=== PATIENT | male | born 1975 ===

== ENCOUNTER 2023-01-20 03:59 | Day surgery (SDC) | payer BC ==
[2023-01-14 17:50] VITALS: BMI 23.6
[2023-01-20] MEDS ORDERED: MIDAZOLAM HCL 2 MG/2 ML SINGLE DOSE VIAL ONE (17:58)
[2023-01-20 19:04] VITALS: BP 112/66; PULSE 80; RESP 16; TEMP 97.3
== END 2023-01-20 19:40 | disposition home or self-care (01) ==
LOC: JASU-SURG 03:59
PROVIDERS: ATTEND Urology
PROC: 0TF3XZZ Fragmentation in Right Kidney Pelvis, External Approach (ICD-10-PCS; principal; 2023-01-20 16:30)
DX: N20.0 Calculus of kidney (principal)